=== PATIENT | female | born 1975 | race Caucasian/White ===

== ENCOUNTER 2016-04-14 19:14 | Emergency (ER) | payer SELFPAY ==
[2016-04-14 19:22] VITALS: BP 105/67
--- NOTE | 2016-04-14 19:37 | UC ---
Throat Pain/Nasal Bo HPI - HPI Summary HPI Summary: The patient comes in today for: 1. Mouth pain: Onset: Yesterday. Palliative/provocative: Nothing makes it better or worse. Quality: No pain--swelling. Region: Right roof of the mouth. Severity: 0/10 Time: Constant. Associated symptoms: She states that it is not hurting at this time. Fevers: None. Previous disease: She states that she has had problems like this in the past. She states that she has had bad teeth for a long time. She has not seen a dentist. She does not have any surgery. In the past, these have drained on their own. - History of Current Complaint Chief Complaint: UCDentalProblem Stated Complaint: MOUTH PAIN Time Seen by Provider: 04/14/16 19:28 Hx Obtained From: Patient Hx Last Menstrual Period: 04/11/16 ?: No - Allergies/Home Medications Allergies/Adverse Reactions: Allergies Allergy/AdvReac Type Severity Reaction Status Date / Time Acetaminophen [From Vicodin] Allergy Hallucinati Verified 04/14/16 19:22 ons Hydrocodone [From Vicodin] Allergy Hallucinati Verified 04/14/16 19:22 ons PMH/Surg Hx/FS Hx/Imm Hx Previously Healthy: Yes Endocrine History Of: Denies: Diabetes, Thyroid Disease, Hyperthyroidism, Hypothyroidism, Dyslipidemia Cardiovascular History Of: Denies: Cardiac Disorders, Hypertension, Pacemaker/ICD, Myocardial Infarction , Congestive Heart Failure, Atrial Fibrillation, Deep Vein Thrombosis, Bleeding Disorders Respiratory History Of: Denies: COPD, Asthma, Bronchitis, Pneumonia, Pulmonary Embolism GI/ History Of: Denies: Gastroesophageal Reflux, Ulcer, Gastrointestinal Bleed, Gall Bladder Disease, Kidney Stones, Diverticulitis, Renal Disease, Urosepsis Neurological History Of: Denies: TIA, CVA, Dementia, Seizures, Migraine Psychological History Of: Denies: Anxiety, Depression, Bipolar Disorder, Schizophrenia, Post Traumatic Stress Disorder Cancer History Of: Denies: Lung Cancer, Colorectal Cancer, Breast Cancer, Prostate Cancer, Cervical Cancer Other History Of: Negative For: HIV, Hepatitis B, Hepatitis C, Anticoagulant Therapy - Surgical History Surgical History: None Surgery Procedure, Year, and Place: c section - Family History Known Family History: Positive: Cardiac Disease, Hypertension Negative: Diabetes - Social History Occupation: Unemployed Alcohol Use: None Substance Use Type: None Smoking Status (MU): Light Every Day Tobacco Smoker Type: Cigarettes Amount Used/How Often: 1/2 PPD Length of Time of Smoking/Using Tobacco: On and Off for 24 Years Have You Smoked in the Last Year: Yes Household Exposure Type: Cigarettes Review of Systems Constitutional: Negative Skin: Negative Eyes: Negative ENT: Dental Pain Respiratory: Negative Cardiovascular: Negative Gastrointestinal: Negative Genitourinary: Negative All Other Systems Reviewed And Are Negative: Yes Physical Exam Triage Information Reviewed: Yes Appearance: Well-Appearing, No Pain Distress, Thin Vital Signs: Initial Vital Signs Temp 99.0 F 04/14/16 19:18 Pulse 127 04/14/16 19:18 Resp 16 04/14/16 19:18 BP 105/67 04/14/16 19:18 Vital Signs Reviewed: Yes Eyes: Positive: Conjunctiva Clear. Negative: Discharge ENT: Positive: Hearing grossly normal, Other: - Bilateral ears: Cerumen impactions, but no canal erythema or edema. Dental exam: The patient has missing teeth and the teeth that are present have rampant decay. There is a non -erythematous thickening of the hard palate mucosa from the top incisors back towards the roof of the mouth. Pressure on the area with cotton tipped applicators did elicit pain. But, there was no drainage.. Negative: Pharyngeal erythema, Nasal congestion, Nasal drainage Dental: Positive: Gross Decay/Caries @, Dental Fracture @ Neck: Positive: Supple, Nontender, No Lymphadenopathy. Negative: Nuchal Rigidity Respiratory: Positive: Chest non-tender, Lungs clear, No respiratory distress. Negative: Rhonchi, Wheezing Cardiovascular: Positive: RRR, No Murmur Abdomen Description: Positive: Nontender, No Organomegaly, Soft Musculoskeletal: Positive: Strength Intact, ROM Intact, No Edema Neurological: Positive: Alert, Muscle Tone Normal Psychological: Positive: Age Appropriate Behavior, Consolable Skin: Negative: rashes, breakdown Throat Pain/Nasal Course/Dx - Differential Dx/Diagnosis Provider Diagnoses: Multiple dental caries with associated mucosal/gingival edema. Discharge - Discharge Plan Condition: Stable Disposition: HOME Patient Education Materials: Dental Caries (ED), Dental Abscess (ED) Additional Instructions: Please see a dentist and/or oral surgeon as soon as possible. The only oral surgeon in [place] is: Dr. Jacobson: Address: [address] [place] [address] Please see the list of oral surgeons in the [place] area.
== END 2016-04-14 20:10 | disposition home or self-care (01) ==
LOC: UCCORT 19:14
DX: K02.9 Dental caries, unspecified (principal); K06.1 Gingival enlargement; Z88.6 Allergy status to analgesic agent; H61.23 Impacted cerumen, bilateral; F17.210 Nicotine dependence, cigarettes, uncomplicated
CPT/HCPCS: 99212; G0463